=== PATIENT | male | born 1955 | race Two or more races ===

== ENCOUNTER 2016-11-11 23:08 | Emergency (ER) | payer MEDICAID ==
[~2016-11-11] VITALS: Ht 162.6 cm; Wt 68.0 kg
[2016-11-11 23:59] VITALS: BP 133/81
== END 2016-11-12 | disposition home or self-care (01) ==
LOC: ER 23:12
DX: M25.512 Pain in left shoulder (principal); E11.9 Type 2 diabetes mellitus without complications; V49.40XA Driver injured in collision with unspecified motor vehicles in traffic accident, initial encounter; Y93.89 Activity, other specified; Y92.413 State road as the place of occurrence of the external cause; Y99.8 Other external cause status
CPT/HCPCS: 73030-TC; A4606; Z7610